=== PATIENT | male | born 1955 | race Caucasian/White ===

== ENCOUNTER → 2019-09-30 | Outpatient (CLI) | payer MEDICARE | END | disposition home or self-care (01) | LOC: RESCLI 09:30 | DX: Z13.31 Encounter for screening for depression (principal); Z13.39 Encounter for screening examination for other mental health and behavioral disorders; Z12.11 Encounter for screening for malignant neoplasm of colon; I48.21 Permanent atrial fibrillation; R21 Rash and other nonspecific skin eruption; Z76.89 Persons encountering health services in other specified circumstances; Z86.79 Personal history of other diseases of the circulatory system; Z79.899 Other long term (current) drug therapy ==

== ENCOUNTER → 2021-01-23 | Outpatient (CLI) | payer MEDICARE | END | disposition home or self-care (01) | LOC: RESCLI 06:54 | PROVIDERS: ATTEND Internal Medicine Nephrology | DX: G62.9 Polyneuropathy, unspecified (principal); K21.9 Gastro-esophageal reflux disease without esophagitis; F41.9 Anxiety disorder, unspecified; Z23 Encounter for immunization; L25.9 Unspecified contact dermatitis, unspecified cause; E55.9 Vitamin D deficiency, unspecified; M48.061 Spinal stenosis, lumbar region without neurogenic claudication; Z79.899 Other long term (current) drug therapy ==

== ENCOUNTER → 2021-04-11 | Outpatient (CLI) | payer MEDICARE | END | disposition home or self-care (01) | LOC: RESCLI 03:30 | PROVIDERS: ATTEND Internal Medicine | DX: C25.9 Malignant neoplasm of pancreas, unspecified (principal); I48.21 Permanent atrial fibrillation; Z79.899 Other long term (current) drug therapy ==